=== PATIENT | male | born 1995 | race Caucasian/White ===

== ENCOUNTER 2018-02-07 15:43 | Emergency (ER) | payer OTHER ==
[2018-02-07 15:48] VITALS: BP 151/84; PULSE 65; TEMP 97.9; BMI 24.3
--- NOTE | 2018-02-07 16:55 | PDOC ---
History of Present Illness - General Chief Complaint: Rash Stated Complaint: Genital lesion Time Seen by Provider: 02/07/18 16:07 History Source: Patient Exam Limitations: Clinical Condition - History of Present Illness Initial Comments: 02/07/18 16:50 Patient present with complain of two small lesions to base of penis on scrotum for 2 months now which is not improving. pt report lesion looks like warts but has not improved and not getting worse either . report no sig pMhx. sexually active with 1 partner 02/07/18 16:52 Timing/Duration: other (2 months) Severity: mild Modifying Factors: improves with: other (nothing ) Associated Symptoms: reports: headaches, rash (genital ). denies: fever/chills , nausea/vomiting Aspirin Received prior to arrival: Yes: no aspirin today Asa Contraindications(Core Measure): Yes: Allergy Beta Marie Contraindications(Core Measure): Yes: Not Prescribed Past History - Past Medical History Allergies/Adverse Reactions: Allergies Allergy/AdvReac Type Severity Reaction Status Date / Time No Known Allergies Allergy Verified 02/07/18 15:48 Home Medications: Ambulatory Orders Podofilox [Condylox] 1 applic TP BID PRN #1 tube 02/07/18 Valacyclovir HCl [Valtrex] 500 mg PO BID 5 Days #10 tablet 02/07/18 COPD: No - Suicide/Smoking/Psychosocial Hx Smoking History: Never smoked Review of Systems - Review of Systems Able to Perform ROS?: Yes Constitutional: No: Chills, Diaphoresis, Fever, Loss of Appetite, Malaise, Night Sweats, Weakness, Weight Stable, Unintentional Wgt. Loss, Unexplained wgt Loss, Other HEENTM: No: Eye Pain, Blurred Vision, Tearing, Recent change in vision, Double Vision, Cataracts, Ear Pain, Ocular Prothesis, Ear Discharge, Nose Pain, Nose Congestion, Tinnitus, Nose Bleeding, Hearing Loss, Throat Pain, Throat Swelling , Mouth Pain, Dental Problems, Difficulty Swallowing, Mouth Swelling Respiratory: No: Cough, Orthopnea, Shortness of Breath, SOB with Exertion, SOB at Rest, Stridor, Wheezing, Productive cough, Hemoptysis, Other Cardiac (ROS): No: Chest Pain, Edema, Irregular Heart Rate, Lightheadedness, Palpitations, Syncope, Chest Tightness, Other ABD/GI: No: Abdominal Distended, Abd. Pain w/ defecation, Blood Streaked Bowels , Constipated, Diarrhea, Difficulty Swallowing, Nausea, Poor Appetite, Poor Fluid Intake, Rectal Bleeding, Vomiting, Indigestion, Abdominal cramping, Tarry Stools, Other : Yes: See HPI, Lesions (scrotum on base of dorsal aspect of penis). No: Burning, Dysuria, Discharge, Frequency, Flank Pain, Hematuria, Incontinence, Pain, Urgency, Testicular Mass, Testicular Swelling, Testicular Pain, Other Musculoskeletal: No: Back Pain, Gout, Joint Pain, Joint Swelling, Muscle Pain, Muscle Weakness, Neck Pain, Joint Stiffness, Other Integumentary: No: Bruising, Change in Color, Change in Hair/Nails, Dryness, Erythema, Flushing, Lesions, Lumps, Pallor, Pruritus, Rash, Sweating, Other Neurological: No: Headache, Numbness, Paresthesia, Pre-Existing Deficit, Seizure , Tingling, Tremors, Weakness, Unsteady Gait, Ataxia, Dizziness, Other Psychiatric: No: Anxiety, Depression, Frequent Crying, Stressors, Sleep Pattern Change, Emotional Problems, Mood Swings, Change in Appetite, Other Endocrine: No: Excessive Sweating, Flushing, Intolerance to Cold, Intolerance to Heat, Increased Hunger, Increased Thirst, Increased Urine, Unexplained Weight Gain, Unexplained Weight Loss, Change in Weight, Other Hematologic/Lymphatic: No: Anemia, Blood Clots, Easy Bleeding, Easy Bruising, Bleeding Diathesis, Lymph Node Abnormalities, Swollen Glands, Other All Other Systems: Reviewed and Negative *Physical Exam - Vital Signs Last Vital Signs Temp Pulse Resp BP Pulse Ox 97.9 F 65 18 151/84 99 02/07/18 15:46 02/07/18 15:46 02/07/18 15:46 02/07/18 15:46 02/07/18 15:46 - Physical Exam General Appearance: Yes: Nourished, Appropriately Dressed. No: Apparent Distress HEENT: positive: EOMI, WALT, Normal ENT Inspection, Symmetrical, TMs Normal, Pharynx Normal Neck: positive: Trachea midline, Supple. negative: Tender Respiratory/Chest: positive: Lungs Clear, Normal Breath Sounds, Respiratory Distress. negative: Chest Tender, Accessory Muscle Use Cardiovascular: positive: Regular Rhythm, Regular Rate, S1, S2 Gastrointestinal/Abdominal: positive: Normal Bowel Sounds Male Genitalia: positive: other (small 1 single vesicular lesion to dorsal aspect of base of penis. no erythema to area). negative: discharge, testicular tenderness, testicular mass, epididymus tender, inguinal hernia Extremity: positive: Normal Capillary Refill, Normal Inspection Integumentary: positive: Normal Color, Rash (small two vesicular lesions to base of dorsal aspect of penis ). negative: Erythema, Swelling, Bruising Neurologic: positive: Fully Oriented, Normal Mood/Affect, Normal Response Medical Decision Making - Medical Decision Making 02/07/18 16:56 Patient presenting with 2 months h/o lesion to genital area w/o pain. likely HSV vs genital warts labs sent . viral culture of lesion sent. treat for HSV and warts. f/u with dermatology 02/07/18 17:03 *DC/Admit/Observation/Transfer Diagnosis at time of Disposition: Genital lesion, male, HSV infection - Discharge Dispostion Disposition: HOME Condition at time of disposition: Good Decision to Admit order: No - Prescriptions Prescriptions: Podofilox [Condylox] 1 applic TP BID PRN #1 tube PRN Reason: lesion Valacyclovir HCl [Valtrex] 500 mg PO BID 5 Days #10 tablet - Referrals Referrals: Rajat Costello MD [Staff Physician] - - Patient Instructions Printed Discharge Instructions: DI for Genital Warts, Herpes Simplex Virus Testing - Post Discharge Activity
--- NOTE | 2018-02-10 09:33 | PDOC ---
Patient Follow-up (Call Back) - Post ED Follow - Up Condition at time of discharge: Good Disposition at time of original discharge: HOME Reason for Call Back: Abnwl. Lab (Lab called today 02/10/18 to inform that Herpes IGG was positive. Pt was not seen by me, this is a lab phone call only. I contacted the patient to inform him of his results. Pt was already discharged on Valtrex.)
== END 2018-02-07 17:10 | disposition home or self-care (01) ==
LOC: JERFT 15:43
DX: N48.89 Other specified disorders of penis (principal); A63.0 Anogenital (venereal) warts; A60.01 Herpesviral infection of penis
CPT/HCPCS: 36415; 86593; 86695; 86696; 87252; 87529; 99281-25